=== PATIENT | male | born 2000 | race Caucasian/White ===

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

== ENCOUNTER 2019-05-14 15:01 | Emergency (ER) | payer OTHER ==
[2019-05-14 15:58] LABS: ABS Eosinophils 0.1 10^3/ul (0-0.6); ABS Lymphocytes 0.8 10^3/ul (1.0-4.8); ABS Monocytes 0.4 10^3/ul (0-0.8); ABS Neutrophils 6.1 10^3/ul (1.5-7.7); Eosinophil % 0.8 %; Hematocrit 42 % (42-52); Hemoglobin 14.6 g/dL (14.0-18.0); Lymphocyte % 10.7 %; Mean Corpuscular HGB Conc 35 g/dL (31-36); Mean Corpuscular Hemoglobin 30 pg (27-31); Mean Corpuscular Volume 86 fL (80-94); Platelet Count 196 10^3/uL (150-450); Red Cell Distribution Width 13 % (10-15); White Blood Count 7.4 10^3/uL (3.5-10.8)
[2019-05-14 16:08] LABS: ALT 28 U/L (7-52); AST 37 U/L (13-39); Albumin 4.8 g/dL (3.2-5.2); Albumin/Globulin Ratio 2.2 (1-3); Alkaline Phosphatase 61 U/L (34-104); Anion Gap 7 mmol/L (2-11); Blood Urea Nitrogen 14 mg/dL (6-24); CO2 Carbon Dioxide 27 mmol/L (22-32); Calcium 9.5 mg/dL (8.6-10.3); Chloride 97 mmol/L (101-111); EGFR African American 115.3 (>60); EGFR Non-African American 95.3 (>60); Globulin 2.2 g/dL (2-4); Glucose 91 mg/dL (70-100); Potassium 4.7 mmol/L (3.5-5.0); Sodium 131 mmol/L (135-145)
--- NOTE | 2019-05-14 16:42 | ED ---
Neurological HPI - HPI Summary HPI Summary: 19 y/o male presented to [facility] after a seizure hours [employer]. Pt was with friends and felt lightheaded, then lost consciousness for 10 minutes during which time he was shaking. He did not hit his head and was combative upon waking. Pt was not playing sports today and has had no recent head trauma. He has felt lightheaded before but it usually passes. No hx or fhx of sz. - History of Current Complaint Chief Complaint: EDSeizure Stated Complaint: SEIZURES PER EMS Time Seen by Provider: 05/14/19 15:06 Hx Obtained From: Patient Onset/Duration: Started hours ago, Resolved Current Severity: None Pain Intensity: 0 Pain Scale Used: 0-10 Numeric Character: Lightheaded Episode Lasting: Seconds/Minutes - 10min Aggravating: Nothing Alleviating: Nothing Associated Signs and Symptoms: Positive: Confusion - Allergy/Home Medications Allergies/Adverse Reactions: Allergies Allergy/AdvReac Type Severity Reaction Status Date / Time No Known Allergies Allergy Verified 11/14/18 15:11 PMH/Surg Hx/FS Hx/Imm Hx Endocrine/Hematology History: Denies: Hx Anticoagulant Therapy Respiratory History: Denies: Hx Asthma Infectious Disease History: No Infectious Disease History: Denies: Traveled Outside the [place] in Last 30 Days - Family History Known Family History: Negative: Seizure Disorder - Social History Occupation: Student Alcohol Use: Occasionally Substance Use Type: Reports: None Smoking Status (MU): Never Smoked Tobacco Review of Systems Neurological/Mental Status: Other - lightheaded, confused Psychological: Normal All Other Systems Reviewed And Are Negative: Yes Physical Exam - Summary Physical Exam Summary: Constitutional: Well-developed, Well-nourished, Alert. (-) Distressed Skin: Warm, Dry HENT: Normocephalic; Atraumatic, Small laceration on tip of tongue Eyes: Conjunctiva normal Neck: Musculoskeletal ROM normal neck. (-) JVD, (-) Stridor, (-) Tracheal deviation Cardio: Rhythm regular, rate normal, Heart sounds normal; Intact distal pulses; Radial pulses are 2+ and symmetric. (-) Murmur Pulmonary/Chest wall: Effort normal. (-) Respiratory distress, (-) Wheezes, (-) Rales Abd: Soft, (-) tenderness, (-) Distension, (-) Guarding, (-) Rebound Musculoskeletal: (-) Edema, Good pulses bilaterally in radius, No calf tenderness, No venous cords, No pain with dorsiflexion of foot. Lymph: (-) Cervical adenopathy Neuro: Alert, Oriented x3. Slow to respond. NIH 0. GCS 15. Psych: Mood and affect Normal Triage Information Reviewed: Yes Vital Signs On Initial Exam: Initial Vitals BP 128/65 05/14/19 15:09 Vital Signs Reviewed: Yes Procedures - Sedation Patient Received Moderate/Deep Sedation with Procedure: No Diagnostics - Vital Signs Vital Signs Temp Pulse Resp BP Pulse Ox 05/14/19 16:09 71 143/75 99 05/14/19 16:00 75 99 05/14/19 15:10 98.2 F 87 16 128/65 96 05/14/19 15:09 128/65 - Laboratory Lab Results: Lab Results 05/14/19 05/14/19 05/14/19 Range/Units 15:44 15:44 15:44 WBC 7.4 (3.5-10.8) 10^3/uL RBC 4.90 (4.18-5.48) 10^6 /uL Hgb 14.6 (14.0-18.0) g/dL Hct 42 (42-52) % MCV 86 (80-94) fL MCH 30 (27-31) pg MCHC 35 (31-36) g/dL RDW 13 (10-15) % Plt Count 196 (150-450) 10^3/uL MPV 8.0 (7.4-10.4) fL Neut % (Auto) 82.7 % Lymph % (Auto) 10.7 % [place] % (Auto) 5.6 % Eos % (Auto) 0.8 % Baso % (Auto) 0.2 % Absolute Neuts (auto) 6.1 (1.5-7.7) 10^3/ul Absolute Lymphs (auto) 0.8 L (1.0-4.8) 10^3/ul Absolute Monos (auto) 0.4 (0-0.8) 10^3/ul Absolute Eos (auto) 0.1 (0-0.6) 10^3/ul Absolute Basos (auto) 0.0 (0-0.2) 10^3/ul Absolute Nucleated RBC 0.0 10^3/ul Nucleated RBC % 0.0 Sodium 131 L (135-145) mmol/L Potassium 4.7 (3.5-5.0) mmol/L Chloride 97 L (101-111) mmol/L Carbon Dioxide 27 (22-32) mmol/L Anion Gap 7 (2-11) mmol/L BUN 14 (6-24) mg/dL Creatinine 1.00 (0.67-1.17) mg/dL Est GFR ( Amer) 115.3 (>60) Est GFR (Non-Af Amer) 95.3 (>60) BUN/Creatinine Ratio 14.0 (8-20) Glucose 91 (70-100) mg/dL Lactic Acid 1.8 (0.5-2.0) mmol/L Calcium 9.5 (8.6-10.3) mg/dL Total Bilirubin 0.70 (0.2-1.0) mg/dL AST 37 (13-39) U/L ALT 28 (7-52) U/L Alkaline Phosphatase 61 (34-104) U/L Total Protein 7.0 (6.4-8.9) g/dL Albumin 4.8 (3.2-5.2) g/dL Globulin 2.2 (2-4) g/dL Albumin/Globulin Ratio 2.2 (1-3) Serum Alcohol Pending Result Diagrams: 05/14/19 15:44 05/14/19 15:44 Lab Statement: Any lab studies that have been ordered have been reviewed, and results considered in the medical decision making process. - CT head CT Interpretation Completed By: Radiologist Summary of CT Findings: IMPRESSION: Normal CT of the brain. This report was reviewed by the ED physician. Course/Dx - Course Course Of Treatment: Patient is here with first-time seizure. Patient has no recent trauma and is overall well appearing upon arrival. Patient was postictal at the scene required Versed due to his agitation. Patient has a bite lan on his tongue. Patient had a CT scan of his brain which is negative. Patient had blood performers grossly unremarkable. Neurology was called and they do not want to start antiepileptic medication but will see him in the office this week for EEG and MRI. - Diagnoses Provider Diagnoses: Seizure - Physician Notifications Discussed Care Of Patient With: Bautista Joseph Time Discussed With Above Provider: 16:38 Instructed by Provider To: Other - Pt case was discussed with Dr. Joseph, who recommends no anti-epileptic medication, and that the pt should follow up for an MRI and an EEG. Discharge ED - Sign-Out/Discharge Documenting (check all that apply): Patient Departure - Discharge Plan Condition: Improved Disposition: HOME Patient Education Materials: Nonepileptic Seizures (ED) Referrals: [facility] [Primary Care Provider] - Bautista Joseph MD [Medical Doctor] - Additional Instructions: Please do not drive for 6 months Please get a good night's sleep every night, do not drink any alcohol Please call the neurologist on Wednesday to schedule an appointment for this week Please return to the emergency department for another seizure, change in vision , one-sided weakness, slurred speech - Billing Disposition and Condition Condition: IMPROVED Disposition: Home - Attestation Statements Document Initiated by Moises: Yes Documenting Scribe: Judah Watson Provider For Whom Moises is Documenting (Include Credential): Wayne Scott MD Scribe Attestation: Judah Boyer, shaniceibed for Wayne Scott MD on 05/14/19 at 1844. Scribe Documentation Reviewed: Yes Provider Attestation: The documentation as recorded by the Judah harris accurately reflects the service I personally performed and the decisions made by , Wayne Scott MD Status of Scribe Document: Viewed
[2019-05-14 16:43] LABS: Alcohol < 10 mg/dL (<10)
[2019-05-14 16:44] LABS: Urine Appearance Clear; Urine Bilirubin Negative (Negative); Urine Blood Negative (Negative); Urine Color Straw; Urine Glucose Negative (Negative); Urine Ketones Negative (Negative); Urine Nitrite Negative (Negative); Urine Protein Negative (Negative); Urine Specific Gravity 1.004 (1.010-1.030); Urine Urobilinogen Negative (Negative)
[2019-05-14 16:49] LABS: Urine Benzodiazepine Screen Presumptive Positive (None Detect); Urine Opiates Screen None Detected (None Detect)
[2019-05-14 17:03] VITALS: BP 139/79
== END 2019-05-14 17:01 | disposition home or self-care (01) ==
LOC: ED 15:01
DX: R56.9 Unspecified convulsions (principal); R42 Dizziness and giddiness; R41.0 Disorientation, unspecified
CPT/HCPCS: 36415; 70450; 80053; 80307; 80320; 81003; 83605; 85025; 99283; G0480